=== PATIENT | male | born 1985 | race Caucasian/White ===

== ENCOUNTER 2024-09-07 14:16 | Emergency (ER) | payer OTHER ==
[2024-09-07 14:30] VITALS: RESP 20; TEMP 98.5
--- NOTE | 2024-09-07 14:46 | ED ---
Abdominal Pain HPI - General Source: patient, RN notes reviewed Mode of arrival: ambulatory Limitations: no limitations <aMrika Abdalla - Last Filed: 09/07/24 14:44> - General Source: patient, RN notes reviewed Mode of arrival: ambulatory Limitations: no limitations <Andrae Sanderson - Last Filed: 09/07/24 16:28> - General Chief Complaint: Abdominal Pain Stated Complaint: abdominal pain Time Seen by Provider: 09/07/24 14:31 - History of Present Illness Initial Comments: Quick [id number] male presents to the emergency department chief complaint of intermittent epigastric abdominal pain over the past few months however states this pain is been persistent throughout the day today. He endorses na usea and vomiting today and is unable to keep down foods or liquids. Denies previous surgical abdominal history. Denies fevers or chills. (Marika Abdalla) Patient is a 39-year-old male present to the emergency department with abdominal discomfort. Symptoms have been occurring for months, worse this morning. Patient did have nausea which somewhat continues and had vomiting x 1 this morning. Patient did have some loose stools and has been having some abdominal cramping. Discomfort and nausea has significantly improved at this time and symptoms are mild. (Andrae Sanderson) - Related Data Allergies Allergy/AdvReac Type Severity Reaction Status Date / Time No Known Allergies Allergy Verified 09/07/24 14:30 Review of Systems ROS Other: All systems not noted in ROS Statement are negative. <Marika Abdalla - Last Filed: 09/07/24 14:44> ROS Other: All systems not noted in ROS Statement are negative. Constitutional: Denies: fever Eyes: Denies: eye pain ENT: Denies: ear pain Gastrointestinal: Reports: as per HPI, abdominal pain, nausea, vomiting, diarrhea Musculoskeletal: Denies: back pain <Andrae Sanderson - Last Filed: 09/07/24 16:28> ROS Statement: Those systems with pertinent positive or pertinent negative responses have been documented in the HPI. Past Medical History Past Medical History: Hypertension History of Any Multi-Drug Resistant Organisms: None Reported Additional Past Surgical History / Comment(s): PE removal Past Psychological History: Anxiety, PTSD Smoking Status: Current every day smoker Past Alcohol Use History: Abuse, Daily, Heavy Past Drug Use History: None Reported <Marika Abdalla - Last Filed: 09/07/24 14:44> General Exam Limitations: no limitations <Marika Abdalla - Last Filed: 09/07/24 14:44> Limitations: no limitations General appearance: alert, in no apparent distress Head exam: Present: normocephalic Eye exam: Present: normal appearance Neck exam: Present: normal inspection Respiratory exam: Present: normal lung sounds bilaterally Cardiovascular Exam: Present: regular rate, normal rhythm GI/Abdominal exam: Present: soft, normal bowel sounds. Absent: distended, tenderness, guarding, rebound, rigid, pulsatile mass Extremities exam: Present: normal inspection Neurological exam: Present: alert Psychiatric exam: Present: normal affect, normal mood Skin exam: Present: normal color <Andrae Sanderson - Last Filed: 09/07/24 16:28> - General Exam Comments Initial Comments: Visual Physical Exam Vital signs reviewed General: Well-appearing, nontoxic, no acute distress. Head: Normocephalic, atraumatic Eyes: PERRLA, EOMI ENT: Airway patent Chest: Nonlabored breathing Skin: No visual rash, normal skin tone Neuro: Alert and oriented 3 Musculoskeletal: No gross abnormalities (Marika Abdalla) Course Vital Signs 09/07/24 14:26 Temperature 98.5 F Pulse Rate 85 Respiratory 20 Rate Blood Pressure 118/77 O2 Sat by Pulse 97 Oximetry Medical Decision Making <Marika Abdalla - Last Filed: 09/07/24 14:44> - Lab Data Result diagrams: 09/07/24 14:58 09/07/24 14:58 <Andrae Sanderson - Last Filed: 09/07/24 16:28> - Medical Decision Making I completed the quick note portion of this chart signed Marika Abdalla PA-C (Marika Abdalla) Was pt. sent in by a medical professional or institution (KETURAH Monroy, LITHOGRAPH OPERATOR, urgent care, hospital, or group home...) When possible be specific @ -Patient was sent from [facility] Did you speak to anyone other than the patient for history (EMS, parent, family, police, friend...)? What history was obtained from this source @ -No Did you review nursing and triage notes (agree or disagree)? Why? @ -I reviewed and agree with nursing and triage notes Were old charts reviewed (outside hosp., previous admission, EMS record, old EKG, old radiological studies, urgent care reports/EKG's, group home records)? Report findings @ -Chart reviewed from [facility] Differential Diagnosis (chest pain, altered mental status, abdominal pain women, abdominal pain men, vaginal bleeding, weakness, fever, dyspnea, syncope, headache, dizziness, GI bleed, back pain, seizure, CVA, palpatations, mental health, musculoskeletal)? @ -Differential Abdominal Pain Men: Appendicitis, cholecystitis, diverticulosis, ischemic bowel, pancreatitis, hepatitis, UTI, gastroenteritis, AAA, incarcerated hernia, bowel obstruction, constipation, inflammatory bowel, hepatitis, peptic ulcer disease, splenic infarction, perforated viscus, testicular torsion, this is not meant to be an all-inclusive list EKG interpreted by me (3pts min.). @ -As above X-rays interpreted by me (1pt min.). @ -None done CT interpreted by me (1pt min.). @ -None done U/S interpreted by me (1pt. min.). @ -Ultrasound shows borderline common bile duct size What testing was considered but not performed or refused? (CT, X-rays, U/S, labs)? Why? @ -None What meds were considered but not given or refused? Why? @ -None Did you discuss the management of the patient with other professionals (professionals i.e. , PA, LITHOGRAPH OPERATOR, lab, RT, psych nurse, social work faculty member, lawyer probate, teacher, correctional officer captain, field nurse case manager)? Give summary @ -Case discussed with Dr. Turner who feels common bile duct size is only borderline and patient can be discharged and follow-up with him. Was smoking cessation discussed for >3mins.? @ -No Was critical care preformed (if so, how long)? @ -No Were there social determinants of health that impacted care today? How? (Homelessness, low income, unemployed, alcoholism, drug addiction, transportation, low edu. Level, literacy, decrease access to med. care, nursing home, rehab)? @ -No Was there de-escalation of care discussed even if they declined (Discuss DNR or withdrawal of care, Hospice)? DNR status @ -No What co-morbidities impacted this encounter? (DM, HTN, Smoking, COPD, CAD, Cancer, CVA, ARF, Chemo, Hep., AIDS, mental health diagnosis, sleep apnea, morbid obesity)? @ -None Was patient admitted / discharged? Hospital course, mention meds given and route, prescriptions, significant lab abnormalities, going to OR and other pertinent info. @ -Patient presents with acute on chronic abdominal symptoms, borderline common bile duct size, labs otherwise unremarkable. Abdominal exam unremarkable. Patient to be discharged with follow-up. Patient updated Undiagnosed new problem with uncertain prognosis? @ -No Drug Therapy requiring intensive monitoring for toxicity (Heparin, Nitro, Insulin, Cardizem)? @ -No Were any procedures done? @ -No Diagnosis/symptom? @ -Vomiting, abdominal pain Acute, or Chronic, or Acute on Chronic? @ -Acute, acute Uncomplicated (without systemic symptoms) or Complicated (systemic symptoms)? @ -Default Side effects of treatment? @ -No Exacerbation, Progression, or Severe Exacerbation? @ -No Poses a threat to life or bodily function? How? (Chest pain, USA, AR, pneumonia, PE, COPD, DKA, ARF, appy, cholecystitis, CVA, Diverticulitis, Homicidal, Suicidal, threat to staff... and all critical care pts) @ -No (Andrae Sanderson) - Lab Data Lab Results 09/07/24 09/07/24 Range/Units 14:58 14:58 WBC 14.2 H (3.8-10.6) k/uL RBC 5.01 (4.30-5.90) m/uL Hgb 15.4 (13.0-17.5) gm/dL Hct 46.5 (39.0-53.0) % MCV 92.8 (80.0-100.0) fL MCH 30.7 (25.0-35.0) pg MCHC 33.1 (31.0-37.0) g/dL RDW 13.0 (11.5-15.5) % Plt Count 315 (150-450) k/uL MPV 6.9 Neutrophils % 85 % Lymphocytes % 7 % Monocytes % 4 % Eosinophils % 3 % Basophils % 0 % Neutrophils # 12.0 H (1.3-7.7) k/uL Lymphocytes # 0.9 L (1.0-4.8) k/uL Monocytes # 0.6 (0-1.0) k/uL Eosinophils # 0.5 (0-0.7) k/uL Basophils # 0.0 (0-0.2) k/uL Sodium 137 (137-145) mmol/L Potassium 5.0 (3.5-5.1) mmol/L Chloride 97 L (98-107) mmol/L Carbon Dioxide 29 (22-30) mmol/L Anion Gap 11 mmol/L BUN 18 (9-20) mg/dL Creatinine 0.83 (0.66-1.25) mg/dL Est GFR (CKD-EPI)AfAm >90 (>60 ml/min/1.73 sqM) Est GFR (CKD-EPI)NonAf >90 (>60 ml/min/1.73 sqM) Glucose 93 (74-99) mg/dL Calcium 9.9 (8.4-10.2) mg/dL Total Bilirubin 0.7 (0.2-1.3) mg/dL AST 25 (17-59) U/L ALT 27 (4-49) U/L Alkaline Phosphatase 93 (38-126) U/L Total Protein 8.0 (6.3-8.2) g/dL Albumin 4.7 (3.5-5.0) g/dL Amylase 46 (30-110) U/L Lipase 60 (23-300) U/L Disposition <Marika Abdalla - Last Filed: 09/07/24 14:44> Is patient prescribed a controlled substance at d/c from ED?: No Time of Disposition: 16:28 <Andrae Sanderson - Last Filed: 09/07/24 16:28> Clinical Impression: Abdominal pain Disposition: HOME SELF-CARE Condition: Stable Instructions (If sedation given, give patient instructions): Abdominal Pain (ED) Additional Instructions: Please do follow-up with Dr. Light in the next few days, number provided. Please also follow-up with your primary care physician in the next few days. Return for increased vomiting, fever, increased pain, worsening symptoms or oth er concerns Referrals: None,Stated [Primary Care Provider] - 1-2 days Chito Storey MD [STAFF PHYSICIAN] - 1-2 days Forms: Area PCPs
[2024-09-07 15:07] LABS: Basophils % (A) 0 %; Eosinophils # (A) 0.5 k/uL (0-0.7); Eosinophils % (A) 3 %; HCT 46.5 % (39.0-53.0); HGB 15.4 gm/dL (13.0-17.5); Lymphocytes # (A) 0.9 k/uL (1.0-4.8); Lymphocytes % (A) 7 %; MCH 30.7 pg (25.0-35.0); MCHC 33.1 g/dL (31.0-37.0); MCV 92.8 fL (80.0-100.0); Mean Platelet Volume 6.9; Monocytes # (A) 0.6 k/uL (0-1.0); Monocytes % (A) 4 %; Neutrophils % (A) 85 %; Platelet Count 315 k/uL (150-450); RBC 5.01 m/uL (4.30-5.90); WBC 14.2 k/uL (3.8-10.6)
[2024-09-07 15:28] LABS: ALT 27 U/L (4-49); AST 25 U/L (17-59); African American GFR (CKD) >90 (>60 ml/min/1.73 sqM); Albumin 4.7 g/dL (3.5-5.0); Alkaline Phosphatase 93 U/L (38-126); Amylase 46 U/L (30-110); Anion Gap 11 mmol/L; Blood Urea Nitrogen 18 mg/dL (9-20); Calcium 9.9 mg/dL (8.4-10.2); Carbon Dioxide 29 mmol/L (22-30); Chloride 97 mmol/L (98-107); Glucose 93 mg/dL (74-99); Lipase 60 U/L (23-300); Non-African American GFR(CKD) >90 (>60 ml/min/1.73 sqM); Sodium 137 mmol/L (137-145); Total Bilirubin 0.7 mg/dL (0.2-1.3)
--- NOTE | 2024-09-07 15:36 | US ---
EXAMINATION TYPE: US gallbladder DATE OF EXAM: 09/07/2024 COMPARISON: NONE CLINICAL INDICATION: Male, 39 years old with history of epigastric pain, N/V; Intermittent abdominal pain x few months w nausea that has worsened over the last few days; patient drinks one pint per day; new onset HTN x 1 week TECHNIQUE: Grayscale and color Doppler imaging of the right upper quadrant was performed. FINDINGS: EXAM MEASUREMENTS: Liver Length: 16.8 cm borderline in size. Gallbladder Wall: 0.3 cm CBD: 0.7 cm Right Kidney: 11.6 x 6.0 x 7.4 cm [employer] TANKER DRIVER NOTES:Difficult exam due to patients pain tolerance Pancreas: Tail obscured by overlying bowel gas Liver: Increased attenuation Gallbladder: wnl Evidence for sonographic Olson's sign: Yes CBD: Dilated Right Kidney: wnl IMPRESSION: 1. Distal CBD is dilated for the patient's age. No gallstones. Distal CBD stone, sludge or other path ology not excluded. Consider follow-up MRCP to assess the distal CBD 2. Slight increased echo pattern to the liver with borderline hepatomegaly correlate for underlying h epatocellular disease or hepatic steatosis. [facility], , 09/07/2024 3:33 PM
[2024-09-07] MEDS: ONDANSETRON 4 MG/2 ML VIAL IVP STA (17:18)
[2024-09-07] MEDS: DICYCLOMINE 10 MG/ML 2 ML AMP IM STA (17:19)
[2024-09-07] MEDS: FAMOTIDINE 20 MG/2 ML VIAL IV STA (17:19)
[2024-09-07 17:47] VITALS: BP 112/74; PULSE 77
== END 2024-09-07 17:47 | disposition home or self-care (01) ==
LOC: EC 14:16
DX: R10.13 Epigastric pain (principal); R11.2 Nausea with vomiting, unspecified; F17.200 Nicotine dependence, unspecified, uncomplicated
CPT/HCPCS: 36415; 80053; 82150; 83690; 85025; 76705; 99284; 96374; 96375; 96372; J0500; J2405; J3490